=== PATIENT | female | born 1965 | race Caucasian/White ===

== ENCOUNTER 2021-08-12 17:11 | Emergency (ER) | payer MEDICAID ==
[~2021-08-12] VITALS: Ht 162.6 cm; Wt 78.5 kg
[2021-08-12 17:19] VITALS: BP 119/77
[2021-08-12] MEDS: IBUPROFEN 600 MG TAB PO ONE (18:15)
[2021-08-12] MEDS ORDERED: NAPR-54 PO (18:34)
[2021-08-12 18:53] VITALS: BP 119/77
== END 2021-08-12 18:53 | disposition home or self-care (01) ==
LOC: MED 17:11
DX: S46.911A Strain of unspecified muscle, fascia and tendon at shoulder and upper arm level, right arm, initial encounter (principal); Z79.1 Long term (current) use of non-steroidal anti-inflammatories (NSAID); X58.XXXA Exposure to other specified factors, initial encounter; Y92.89 Other specified places as the place of occurrence of the external cause; Y93.89 Activity, other specified; Y99.8 Other external cause status
CPT/HCPCS: 73030; 99284; Q0092; 99283

== ENCOUNTER 2022-04-10 12:20 | Emergency (ER) | payer MEDICAID, OTHER ==
[~2022-04-10] VITALS: Ht 149.9 cm; Wt 75.3 kg
[~2022-04-10 12:20] MED LIST: NAPR-54 PO
[2022-04-10 12:58] VITALS: BP 126/77
--- NOTE | 2022-04-10 12:58 | NUR ---
57 y/o female bib self, c/o right shoulder pain that radiates down right arm for 1 mo in relation to hanging gerry lights for long period of time. denies any new trauma, fall. 11/06 pain. a&ox4, al[place]ian speaking, ambulates with steady gait. pmh: denies nka med: denies
[2022-04-10] MEDS ORDERED: IBUPROFEN 800 MG TAB PO ONE (13:20)
[2022-04-10] MEDS ORDERED: LIDO4CRE18 TP (13:57)
[2022-04-10 14:31] VITALS: BP 126/77
--- NOTE | 2022-04-10 14:31 | NUR ---
Patient discharged with v/s stable. Written and verbal after care instructions given and explained. Patient alert, oriented and verbalized understanding of instructions. Ambulatory with steady gait. All questions addressed prior to discharge. ID band removed. Patient advised to follow up with PMD. Rx of lidocaine (sent) given. Patient educated on indication of medication including possible reaction and side effects. Opportunity to ask questions provided and answered. copy of work note and imaging given
== END 2022-04-10 14:31 | disposition home or self-care (01) ==
LOC: MED 12:20
DX: M25.511 Pain in right shoulder (principal); R03.0 Elevated blood-pressure reading, without diagnosis of hypertension; Z79.899 Other long term (current) drug therapy
CPT/HCPCS: 73030; 99283